=== PATIENT | female | born 2000 | race Caucasian/White ===

== ENCOUNTER 2022-03-24 13:52 | Emergency (ER) | payer SELFPAY ==
[2022-03-24 17:00] LABS: C. TRACHOMATIS BY PCR NOT DETECTED; N. GONORRHOEAE BY PCR NOT DETECTED
== END 2022-03-24 17:09 | disposition home or self-care (01) ==
LOC: MW.ED 13:52
DX: O98.311 Other infections with a predominantly sexual mode of transmission complicating pregnancy, first trimester (principal); A59.01 Trichomonal vulvovaginitis; B96.89 Other specified bacterial agents as the cause of diseases classified elsewhere; Z72.0 Tobacco use; Z3A.01 Less than 8 weeks gestation of pregnancy
CPT/HCPCS: 81003; 87480; 87491; 87510; 87591; 87660; 99283